=== PATIENT | female | born 1945 | race Caucasian/White ===

== ENCOUNTER → 2016-10-14 | Outpatient (CLI) | payer MEDICARE, BC ==
--- NOTE | 2016-10-14 13:56 | BD ---
EXAMINATION TYPE: MG DEXA axial skeleton. DATE OF EXAM: 10/14/2016 COMPARISON: Previous study dated 10/10/2014. CLINICAL HISTORY: Postmenopausal Height: 65.7 IN Weight: 166 LBS FRAX RISK QUESTIONS: Alcohol (3 or more units per day): NO Family History (Parent hip fracture): NO Glucocorticoids (More than 3mos): NO (Ex: prednisone, prednisolone, methylprednisolone, dexamethasone, and hydrocortisone). History of Fracture in Adulthood: RT FOOT FX AGE 61 Secondary Osteoporosis: 1. Type 1 Diabetes: NO 2. Hyperthyroidism: NO 3. Menopause before 45: YES PARTIAL HYSTERECTOMY AGE 42 4. Malnutrition: NO 5. Chronic liver disease: NO Rheumatoid Arthritis: NO Current Tobacco Use: NO RISK FACTORS HISTORY OF: Active: YES Postmenopausal woman: YES AGE 42 MEDICATIONS: Osteoporosis Medications: NOT NOW Which medication: BONIVA How Lon - MAY 2015 Additional Medications: BLOOD PRESSURE MEDS, BABY ASPIRIN EXAM MEASUREMENTS: Bone mineral densitometry was performed using the [employer] System. Bone mineral density as measured about the Lumbar spine is: ----- L1-L4(G/cm2): 1.045 T Score Values are as follows: ----- L2: -1.3 ----- L3: -0.8 ----- L4: -0.4 ----- L1-L4: -1.1 Bone mineral density has: Increased 7.7% since study of: 10/10/2014 Bone mineral density about the R hip (g/cm2): 0.696 Bone mineral density about the L hip (g/cm2): 0.887 T Score values are as follows: -----R Neck: -2.5 -----L Neck: -1.1 -----R Total: -2.5 -----L Total: -1.9 Bone mineral density has: Increased 5.0% since study of: 10/10/14 IMPRESSION: OSTEOPENIA. NOTE: T-SCORE=SD OF THE YOUNG ADULT MEAN.
== END | disposition home or self-care (01) ==
LOC: RADBDWWP 12:17
PROVIDERS: ATTEND Family Medicine
DX: M85.80 Other specified disorders of bone density and structure, unspecified site (principal)
CPT/HCPCS: 77080

== ENCOUNTER → 2018-11-27 | Outpatient (CLI) | payer MEDICARE, BC ==
--- NOTE | 2018-11-27 14:38 | BD ---
EXAMINATION TYPE: Axial Bone Density DATE OF EXAM: 11/27/2018 COMPARISON: 10/14/2016 CLINICAL HISTORY: M [age] Height: 65.5 IN Weight: 169 LBS FRAX RISK QUESTIONS: Secondary Osteoporosis: 3. Menopause before 45: YES PARTIAL HYST AGE 43 RISK FACTORS HISTORY OF: Active: YES Diet low in dairy products/other sources of calcium: YES Postmenopausal woman: AGE 43 PARTIAL HYST MEDICATIONS: Osteoporosis Medications: NOT NOW Which medication: Boniva How Lon-2 YEARS Additional Medications: BLOOD PRESSURE MEDS, BABY ASPIRIN EXAM MEASUREMENTS: Bone mineral densitometry was performed using the [employer] System. Bone mineral density as measured about the Lumbar spine is: ----- L1-L4(G/cm2): 0.944 T Score Values are as follows: ----- L2: -3.3 ----- L3: -1.6 ----- L4: -0.8 ----- L1-L4: -2.0 Bone mineral density has: Decreased -10.0% since study of: 10/14/2016 Bone mineral density about the R hip (g/cm2): 0.687 Bone mineral density about the L hip (g/cm2): 0.725 T Score values are as follows: -----R Neck: -2.5 -----L Neck: -2.2 -----R Total: -2.6 -----L Total: -2.2 Bone mineral density has: Decreased -4.4% since study of: 10/14/2016 IMPRESSION: Osteoporosis (T Score less than -2.5). There is increased fracture risk and therapy is usually indicated based on age. Re-Screen 1-2 years. NOTE: T-SCORE=SD OF THE YOUNG ADULT MEAN.
== END | disposition home or self-care (01) ==
LOC: RADBDWWP 12:50
PROVIDERS: ATTEND Family Medicine
DX: M81.0 Age-related osteoporosis without current pathological fracture (principal)
CPT/HCPCS: 77080

== ENCOUNTER → 2021-09-11 | Outpatient (CLI) | payer MEDICARE, BC ==
--- NOTE | 2021-09-11 15:51 | BD ---
EXAMINATION TYPE: Axial Bone Density DATE OF EXAM: 09/11/2021 COMPARISON: NONE CLINICAL HISTORY: 76 years year old Female. ICD-10 CODE: M81.0 AGE-RELATED OSTEOPOROSIS Height: 66 Weight: 168.8 FRAX RISK QUESTIONS: Alcohol (3 or more units per day): no Family History (Parent hip fracture): no Glucocorticoids (More than 3mos): no (Ex: prednisone, prednisolone, methylprednisolone, dexamethasone, and hydrocortisone). History of Fracture in Adulthood: yes Secondary Osteoporosis: 1. Type 1 Diabetes: no 2. Hyperthyroidism: no 3. Menopause before 45: no 4. Malnutrition: no 5. Chronic liver disease: no Rheumatoid Arthritis: no Current Tobacco Use: no RISK FACTORS HISTORY OF: Surgery to Spine/Hip(right/left)/Wrist (right/left): no Family History of Osteoporosis: yes Active: yes Diet low in dairy products/other sources of calcium: no Postmenopausal woman: yes Lost more than 2 inches in height since high school: no MEDICATIONS: Additional History: EXAM MEASUREMENTS: Bone mineral densitometry was performed using the [employer] System. Bone mineral density as measured about the Lumbar spine is: ----- L1-L4(G/cm2): 0.969 T Score Values are as follows: ----- L1: -2.5 ----- L2: -2.9 ----- L3: -1.2 ----- L4: -1.0 ----- L1-L4: -1.8 Bone mineral density has: increased 1.4 % since study of: 11.27.2018 Bone mineral density about the R hip (g/cm2): 0.729 Bone mineral density about the L hip (g/cm2): 0.710 T Score values are as follows: -----R Neck: -2.2 -----L Neck: 2.4 -----R Total: -2.1 -----L Total: -2.3 Bone mineral density has: increased 4.3 % since study of: 11.27.2018 FRAX%s: The graph provided illustrates a 22.6% chance for a major osteoporotic fx and a 6.2% chance f or the hips probability for fx in 10 years time. IMPRESSION: Osteopenia (T Score between -2.5 and -1). There is slightly increased risk of fracture and the patient may be considered for treatment. Re-Screen 2-5 years. NOTE: T-SCORE=SD OF THE YOUNG ADULT MEAN.
== END | disposition home or self-care (01) ==
LOC: RADBDWWP 14:36
PROVIDERS: ATTEND Family Medicine
DX: M81.0 Age-related osteoporosis without current pathological fracture (principal)
CPT/HCPCS: 77080

== ENCOUNTER → 2023-09-15 | Outpatient (CLI) | payer MEDICARE, BC ==
--- NOTE | 2023-09-15 10:56 | BD ---
EXAMINATION TYPE: Axial Bone Density DATE OF EXAM: 09/15/2023 CLINICAL HISTORY: 78 years old Female. ICD-10 CODE: M81.0 AGE-RELATED OSTEOPOROSIS W/O CURRENT PATHO LO Height: 65 Weight: 151. FRAX RISK QUESTIONS: Alcohol (3 or more units per day): no Family History (Parent hip fracture): no Glucocorticoids (More than 3mos): no (Ex: prednisone, prednisolone, methylprednisolone, dexamethasone, and hydrocortisone). History of Fracture in Adulthood: no Secondary Osteoporosis: 1. Type 1 Diabetes: no 2. Hyperthyroidism: no 3. Menopause before 45: no 4. Malnutrition: no 5. Chronic liver disease: no Rheumatoid Arthritis: no Current Tobacco Use: no RISK FACTORS HISTORY OF: Hip Fracture (Right/Left): no Spine Fracture: no History of Wrist Fracture: no Surgery to Spine/Hip(right/left)/Wrist (right/left): no MEDICATIONS: Thyroid Medications: no Osteoporosis Medications: no EXAM MEASUREMENTS: Bone mineral densitometry was performed using the [employer] System. Bone mineral density as measured about the Lumbar spine is: ----- L1-L4(G/cm2): 0.971 T Score Values are as follows: ----- L1: -3.3 ----- L2: -2.0 ----- L3: -1.0 ----- L4: -1.0 ----- L1-L4: -1.7 Z Score Values are as follows: ----- L1: -1.6 ----- L2: -0.4 ----- L3: 0.7 ----- L4: 0.7 ----- L1-L4: -0.1 Bone mineral density has: increased 0.2 % since study of: 09/11/2021 Bone mineral density about the R hip (g/cm2): 0.647 Bone mineral density about the L hip (g/cm2): 0.667 T Score values are as follows: -----R Neck: -2.7 -----L Neck: -2.4 -----R Total: -2.9 -----L Total: -2.7 Z Score values are as follows: -----R Neck: -0.7 -----L Neck: -0.4 -----R Total: -1.0 -----L Total: -0.9 Bone mineral density has: decreased 10.0 % since study of: 09/11/2021 FRAX%s: The graph provided illustrates a 20.5% chance for a major osteoporotic fx and a 7.5% chance f or the hips probability for fx in 10 years time. IMPRESSION: Osteoporosis (T Score less than -2.5). There is increased fracture risk and therapy is usually indicated based on age. Re-Screen 1-2 years. NOTE: T-SCORE=SD OF THE YOUNG ADULT MEAN.
== END | disposition home or self-care (01) ==
LOC: RADBDWWP 09:26
PROVIDERS: ATTEND Family Medicine
DX: M81.0 Age-related osteoporosis without current pathological fracture (principal); M85.89 Other specified disorders of bone density and structure, multiple sites
CPT/HCPCS: 77080